=== PATIENT | female | born 1990 | race Caucasian/White ===

== ENCOUNTER 2018-11-22 20:04 | Emergency (ER) | payer OTHER ==
[2018-11-22 20:05] VITALS: BMI 30.9
[2018-11-22 20:13] VITALS: BP 129/73; PULSE 91; RESP 20; TEMP 99.3; O2SAT 100
--- NOTE | 2018-11-22 21:55 | C.PDOC ---
History Of Present Illness 28 y/o female comes in to ED complaining of flu-like symptoms for the past 2 days, associated with mild headache and body aches. Patient denies fever, vomiting, or nausea. States that her entire household has similar symptoms. Time Seen by Provider: 11/22/18 20:16 Chief Complaint (Nursing): Flu-like Symptoms History Per: Patient History/Exam Limitations: no limitations Onset/Duration Of Symptoms: Days Current Symptoms Are (Timing): Still Present Sick Contacts (Context): Family Member(s) Associated Symptoms: Nausea, Vomiting. denies: Fever Past Medical History Reviewed: Historical Data, Nursing Documentation, Vital Signs Vital Signs: Last Vital Signs Temp 99.3 F 11/22/18 20:08 Pulse 91 H 11/22/18 20:08 Resp 20 11/22/18 20:08 BP 129/73 11/22/18 20:08 Pulse Ox 100 11/22/18 20:08 - Medical History PMH: Denies: Chronic Kidney Disease Surgical History: Appendectomy (2009) - [facility] Procedures DELIVERY OF PRODUCTS OF CONCEPTION, EXTERNAL APPROACH (06/24/15) MANUAL ASSIST DELIV NEC (05/13/13) Family History: States: No Known Family Hx - Social History Hx Tobacco Use: No Hx Alcohol Use: Yes Hx Substance Use: No - Immunization History Hx Influenza Vaccination: No Hx Pneumococcal Vaccination: Yes Review Of Systems Except As Marked, All Systems Reviewed And Found Negative. Constitutional: Positive for: Other (body aches). Negative for: Fever Gastrointestinal: Negative for: Nausea, Vomiting Neurological: Positive for: Headache Physical Exam - Physical Exam Appears: Non-toxic, No Acute Distress Skin: Warm, Dry Head: Atraumatic, Normacephalic Eye(s): bilateral: Normal Inspection Oral Mucosa: Moist Throat: Normal Cardiovascular: Rhythm Regular, No Murmur Respiratory: Normal Breath Sounds, No Rales, No Rhonchi, No Wheezing Gastrointestinal/Abdominal: Soft, No Tenderness Extremity: Bilateral: Atraumatic, Normal ROM Neurological/Psych: Oriented x3, Normal Speech ED Course And Treatment O2 Sat by Pulse Oximetry: 100 (RA) Pulse Ox Interpretation: Normal Medical Decision Making Medical Decision Making: Plan: --Tylenol PO Disposition - Disposition Referrals: [facility] Soto, [Non-Staff] - Disposition: HOME/ ROUTINE Disposition Time: 20:35 Condition: GOOD Additional Instructions: HILTON MEYER, thank you for letting us take care of you today. The emergency medical care you received today was directed at your acute symptoms. If you were prescribed any medication, please fill it and take as directed. It may take several days for your symptoms to resolve. Return to the Emergency Department if your symptoms worsen, do not improve, or if you have any other problems. Please contact your doctor or call one of the physicians/clinics you have been referred to that are listed on the Patient Visit Information form that is included in your discharge packet. Bring any paperwork you were given at discharge with you along with any medications you are taking to your follow up visit. Our treatment cannot replace ongoing medical care by a primary care provider outside of the emergency department. Thank you for allowing the [facility] team to be part of your care today. Drink plenty of fluids to maintain hydration. Follow up with your [facility] doctor this week as scheduled for re-evaluation and further management. Prescriptions: Oseltamivir Phosphate [Tamiflu] 75 mg PO BID #10 capsule Instructions: Viral Syndrome (DC) Forms: [employer] (Danish) - Clinical Impression Clinical Impression: Influenza-like illness - Scribe Statement The provider has reviewed the documentation as recorded by the Guyibadri Rahman Provider Attestation: All medical record entries made by the Scribe were at my direction and personally dictated by me. I have reviewed the chart and agree that the record accurately reflects my personal performance of the history, physical exam, medical decision making, and the department course for this patient. I have also personally directed, reviewed, and agree with the discharge instructions and disposition.
== END 2018-11-22 20:53 | disposition home or self-care (01) ==
LOC: C.ER 20:04
DX: J11.1 Influenza due to unidentified influenza virus with other respiratory manifestations (principal)